=== PATIENT | female | born 1965 | race American Indian/Alaskan Native ===

== ENCOUNTER 2021-06-13 15:54 | Inpatient (IN) | payer SELFPAY ==
[2021-06-13] MEDS ORDERED: ONDANSETRON 4 MG/2 ML INJ IV ONE (16:40)
[2021-06-13] MEDS ORDERED: SODIUM CHLORIDE 0.9% 500 ML 500 ML IV ONE (16:41)
--- NOTE | 2021-06-13 16:41 | Emergency Department Report ---
ED Neuro Deficit HPI - General Chief Complaint: Nausea/Vomiting/Diarrhea Stated Complaint: WEAKNESS/DIZZINESS Time Seen by Provider: 06/13/21 16:33 Source: patient, RN notes reviewed Mode of arrival: Ambulatory Limitations: Physical Limitation - History of Present Illness Initial Comments: The patient was evaluated in the emergency department for symptoms described in the history of present illness. He/she was evaluated in the context of the global COVID-19 pandemic, which necessitated consideration that the patient might be at risk for infection with the virus that causes COVID-19. Institutional protocols and algorithms that pertain to the evaluation of patients at risk for COVID-19 are in a state of rapid change based on information released by regulatory bodies including the CDC and federal and state organizations. These policies and algorithms were followed during the patient's care in the emergency department. Please note that these policies, procedures and recommendations changed on a rapid basis. The patient is a 56-year-old female, with a history of obesity, hypertension and diabetes. She presents to the ER today with a complaint of painless nausea, vomiting, dizziness, and unsteady gait. She thinks that her symptoms started at, around 1:45 PM. She denies headache, neck pain, chest pain, abdominal pain, shortness of breath, loss of auditory acuity or tinnitus. She does feel like she has blurry vision. She denies Covid symptomatology. She has never had symptoms like this before. -: Sudden Location: ataxia Presenting Symptoms: Absent: Weak/Paralyzed One Side, Sudden, Severe Headache, Blurred/Loss of Vision, Facial Droop/Numbness, Unable to Speak Clearly, Altered Mental Status History of same: No Place: outdoors (Patient reports that she was at a store) Severity: severe Improves With: none Worsens With: time On Anticoagulants: No Context: sudden onset Associated Symptoms: nausea/vomiting, vertigo, weakness. denies: shortness of breath - Related Data Allergies/Adverse Reactions: Allergies Allergy/AdvReac Type Severity Reaction Status Date / Time No Known Allergies Allergy Verified 06/13/21 16:11 ED Review of Systems ROS: Stated complaint: WEAKNESS/DIZZINESS Other details as noted in HPI Constitutional: denies: fever Eyes: vision change. denies: eye pain, eye discharge ENT: denies: epistaxis Respiratory: denies: cough Cardiovascular: other (Lightheaded and dizzy). denies: chest pain, orthopnea Gastrointestinal: nausea, vomiting. denies: abdominal pain, hematemesis, melena, hematochezia Musculoskeletal: denies: back pain Neurological: weakness, abnormal gait Hematological/Lymphatic: denies: easy bleeding ED Past Medical Hx - Past Medical History Previous Medical History?: No - Surgical History Past Surgical History?: No ED Neuro Physical Exam - General Limitations: Physical Limitation General appearance: alert, anxious, obese Suspected Stroke: Yes - Head Head exam: Present: atraumatic, normocephalic - Eye Eye exam: Present: normal appearance, PERRL, EOMI, other (Visual acuity intact to finger counting, color perception, reading at a close distance). Absent: nystagmus - ENT ENT exam: Present: normal exam, normal orophraynx, mucous membranes moist, normal external ear exam - Neck Neck exam: Present: normal inspection, full ROM. Absent: tenderness, meningismus - Respiratory Respiratory exam: Present: normal lung sounds bilaterally. Absent: respiratory distress, wheezes, rales, rhonchi, stridor, decreased breath sounds - Cardiovascular Cardiovascular Exam: Present: regular rate, normal rhythm, normal heart sounds. Absent: bradycardia, tachycardia, irregular rhythm, systolic murmur, diastolic murmur, rubs, gallop - GI/Abdominal GI/Abdominal exam: Present: soft. Absent: distended, tenderness, guarding, rebound, rigid, pulsatile mass - Extremities Exam Extremities exam: Present: normal inspection, full ROM, other (2+ pulses noted in the bilateral upper and lower extremities. There is no palpable cord. negative Homans sign. Muscular compartments are soft. The pelvis is stable.). Absent: pedal edema, calf tenderness - Back Exam Back exam: Present: normal inspection, full ROM. Absent: tenderness, CVA tenderness (R), CVA tenderness (L), paraspinal tenderness, vertebral tenderness - Neurological Exam Neurological exam: Present: alert, oriented X3, abnormal gait (Patient walks with a broad-based gait. The patient cannot perform tandem gait. The patient has a positive Romberg examination.), other (There is dysmetria and past- pointing in the bilateral upper extremities. There is pronator drift. Patient has clumsy [id number].). Absent: motor sensory deficit (No facial droop. Tongue midline. Extraocular movements intact bilaterally. Facial sensation intact to light touch in V1, V2, V3 distribution bilaterally. 5 and a 5 strength in 4 extremities. Sensation intact to light touch in 4 extremities.) - NIHSS Assessment Interval: Baseline 1a. Level of Consciousness: alert/keenly responsive 1b. LOC Questions: answers both correctly 1c. LOC Commands: performs tasks correctly 2. Best Gaze: normal 3. Visual: no visual loss 4. Facial Palsy: normal symmetrical movement 5b. Motor Arm Right: no drift 5a. Motor Arm Left: no drift 6a. Motor Leg Left: no drift 6b. Motor Leg Right: no drift 7. Limb Ataxia: present 2 limbs 8. Sensory: normal 9. Best Language: no aphasia 10. Dysarthria: normal 11. Extinction/Inattention: no abnormality Total Score: 2 Stroke Severity: Minor Stroke - Psychiatric Psychiatric exam: Present: anxious - Skin Skin exam: Present: warm, dry, intact, normal color. Absent: rash ED Course Vital Signs 06/13/21 06/13/21 06/13/21 16:11 17:35 17:36 Temperature 98 F Pulse Rate 71 76 66 Pulse Rate [ 61 Left Arm] Respiratory 16 Rate Respiratory 14 Rate [Left Arm] Blood Pressure 153/72 153/72 Blood Pressure 142/77 [Left Arm] Blood Pressure 154/63 [Left] O2 Sat by Pulse 96 Oximetry O2 Sat by Pulse 99 Oximetry [Left Arm] 06/13/21 06/13/21 06/13/21 17:49 18:04 18:19 Temperature Pulse Rate Pulse Rate [ 66 64 62 Left Arm] Respiratory Rate Respiratory 14 14 15 Rate [Left Arm] Blood Pressure Blood Pressure 133/70 142/74 142/74 [Left Arm] Blood Pressure [Left] O2 Sat by Pulse Oximetry O2 Sat by Pulse 99 99 99 Oximetry [Left Arm] 06/13/21 18:34 Temperature Pulse Rate Pulse Rate [ 66 Left Arm] Respiratory Rate Respiratory 15 Rate [Left Arm] Blood Pressure Blood Pressure 97/63 [Left Arm] Blood Pressure [Left] O2 Sat by Pulse Oximetry O2 Sat by Pulse 99 Oximetry [Left Arm] - Reevaluation(s) Reevaluation #1: 06/13/21 19:59 Patient reassessed. Repeat examination unchanged. Will not ambulate the patient due to her unsteady gait, and given the fact that she is a fall risk. She denies significant pain at this time. Blood pressure acceptable. Awaiting placement in the intensive care unit. - Lab Data Result diagrams: 06/13/21 17:30 06/13/21 17:30 Lab Results 06/13/21 06/13/21 06/13/21 Range/Units 17:30 17:30 17:30 WBC 11.2 H (4.5-11.0) K/mm3 RBC 4.15 (3.65-5.03) M/mm3 Hgb 11.6 (10.1-14.3) gm/dl Hct 35.2 (30.3-42.9) % MCV 85 (79-97) fl MCH 28 (28-32) pg MCHC 33 (30-34) % RDW 15.3 H (13.2-15.2) % Plt Count 366 (140-440) K/mm3 Lymph % (Auto) 31.3 (13.4-35.0) % [place] % (Auto) 4.0 (0.0-7.3) % Eos % (Auto) 0.5 (0.0-4.3) % Baso % (Auto) 1.3 (0.0-1.8) % Lymph # (Auto) 3.5 (1.2-5.4) K/mm3 [place] # (Auto) 0.4 (0.0-0.8) K/mm3 Eos # (Auto) 0.1 (0.0-0.4) K/mm3 Baso # (Auto) 0.1 (0.0-0.1) K/mm3 Seg Neutrophils % 62.9 (40.0-70.0) % Seg Neutrophils # 7.0 (1.8-7.7) K/mm3 PT 13.2 (12.2-14.9) Sec. INR 0.95 (0.87-1.13) APTT 22.7 L (24.2-36.6) Sec. Thrombin Time 18.1 (15.1-19.6) Sec. Sodium 137 (137-145) mmol/L Potassium 4.2 (3.6-5.0) mmol/L Chloride 100.0 (98-107) mmol/L Carbon Dioxide 23 (22-30) mmol/L Anion Gap 18 mmol/L BUN 16 (7-17) mg/dL Creatinine 0.8 (0.6-1.2) mg/dL Estimated GFR > 60 ml/min BUN/Creatinine Ratio 20 % Glucose 109 H (65-100) mg/dL Calcium 9.0 (8.4-10.2) mg/dL Magnesium 1.90 (1.7-2.3) mg/dL Total Bilirubin 0.40 (0.1-1.2) mg/dL AST 20 (5-40) units/L ALT 16 (7-56) units/L Alkaline Phosphatase 108 (35-129) units/L Total Creatine Kinase 384 H (30-135) units/L CK-MB (CK-2) 1.4 (0.0-4.0) ng/mL CK-MB (CK-2) Rel Index 0.3 (0-4) Troponin T < 0.010 (0.00-0.029) ng/mL Total Protein 8.1 (6.3-8.2) g/dL Albumin 4.4 (3.9-5) g/dL Albumin/Globulin Ratio 1.2 % TSH (0.270-4.200) mlU/mL Plasma/Serum Alcohol (0-0.07) % 06/13/21 06/13/21 Range/Units 17:30 17:30 WBC (4.5-11.0) K/mm3 RBC (3.65-5.03) M/mm3 Hgb (10.1-14.3) gm/dl Hct (30.3-42.9) % MCV (79-97) fl MCH (28-32) pg MCHC (30-34) % RDW (13.2-15.2) % Plt Count (140-440) K/mm3 Lymph % (Auto) (13.4-35.0) % [place] % (Auto) (0.0-7.3) % Eos % (Auto) (0.0-4.3) % Baso % (Auto) (0.0-1.8) % Lymph # (Auto) (1.2-5.4) K/mm3 [place] # (Auto) (0.0-0.8) K/mm3 Eos # (Auto) (0.0-0.4) K/mm3 Baso # (Auto) (0.0-0.1) K/mm3 Seg Neutrophils % (40.0-70.0) % Seg Neutrophils # (1.8-7.7) K/mm3 PT (12.2-14.9) Sec. INR (0.87-1.13) APTT (24.2-36.6) Sec. Thrombin Time (15.1-19.6) Sec. Sodium (137-145) mmol/L Potassium (3.6-5.0) mmol/L Chloride (98-107) mmol/L Carbon Dioxide (22-30) mmol/L Anion Gap mmol/L BUN (7-17) mg/dL Creatinine (0.6-1.2) mg/dL Estimated GFR ml/min BUN/Creatinine Ratio % Glucose (65-100) mg/dL Calcium (8.4-10.2) mg/dL Magnesium (1.7-2.3) mg/dL Total Bilirubin (0.1-1.2) mg/dL AST (5-40) units/L ALT (7-56) units/L Alkaline Phosphatase (35-129) units/L Total Creatine Kinase (30-135) units/L CK-MB (CK-2) (0.0-4.0) ng/mL CK-MB (CK-2) Rel Index (0-4) Troponin T (0.00-0.029) ng/mL Total Protein (6.3-8.2) g/dL Albumin (3.9-5) g/dL Albumin/Globulin Ratio % TSH 1.430 (0.270-4.200) mlU/mL Plasma/Serum Alcohol < 0.01 (0-0.07) % Vital Signs 06/13/21 16:11 Temperature 98 F Pulse Rate 71 Respiratory 16 Rate Blood Pressure 154/63 [Left] O2 Sat by Pulse 96 Oximetry Vital Signs 06/13/21 06/13/21 06/13/21 16:11 17:35 17:36 Temperature 98 F Pulse Rate 71 76 66 Pulse Rate [ 61 Left Arm] Respiratory 16 Rate Respiratory 14 Rate [Left Arm] Blood Pressure 153/72 153/72 Blood Pressure 142/77 [Left Arm] Blood Pressure 154/63 [Left] O2 Sat by Pulse 96 Oximetry O2 Sat by Pulse 99 Oximetry [Left Arm] 06/13/21 06/13/21 17:49 18:04 Temperature Pulse Rate Pulse Rate [ 66 64 Left Arm] Respiratory Rate Respiratory 14 14 Rate [Left Arm] Blood Pressure Blood Pressure 133/70 142/74 [Left Arm] Blood Pressure [Left] O2 Sat by Pulse Oximetry O2 Sat by Pulse 99 99 Oximetry [Left Arm] Lab Results 06/13/21 06/13/21 06/13/21 Range/Units 17:30 17:30 17:30 WBC 11.2 H (4.5-11.0) K/mm3 RBC 4.15 (3.65-5.03) M/mm3 Hgb 11.6 (10.1-14.3) gm/dl Hct 35.2 (30.3-42.9) % MCV 85 (79-97) fl MCH 28 (28-32) pg MCHC 33 (30-34) % RDW 15.3 H (13.2-15.2) % Plt Count 366 (140-440) K/mm3 Lymph % (Auto) 31.3 (13.4-35.0) % [place] % (Auto) 4.0 (0.0-7.3) % Eos % (Auto) 0.5 (0.0-4.3) % Baso % (Auto) 1.3 (0.0-1.8) % Lymph # (Auto) 3.5 (1.2-5.4) K/mm3 [place] # (Auto) 0.4 (0.0-0.8) K/mm3 Eos # (Auto) 0.1 (0.0-0.4) K/mm3 Baso # (Auto) 0.1 (0.0-0.1) K/mm3 Seg Neutrophils % 62.9 (40.0-70.0) % Seg Neutrophils # 7.0 (1.8-7.7) K/mm3 PT 13.2 (12.2-14.9) Sec. INR 0.95 (0.87-1.13) APTT 22.7 L (24.2-36.6) Sec. Thrombin Time 18.1 (15.1-19.6) Sec. Sodium 137 (137-145) mmol/L Potassium 4.2 (3.6-5.0) mmol/L Chloride 100.0 (98-107) mmol/L Carbon Dioxide 23 (22-30) mmol/L Anion Gap 18 mmol/L BUN 16 (7-17) mg/dL Creatinine 0.8 (0.6-1.2) mg/dL Estimated GFR > 60 ml/min BUN/Creatinine Ratio 20 % Glucose 109 H (65-100) mg/dL Calcium 9.0 (8.4-10.2) mg/dL Magnesium 1.90 (1.7-2.3) mg/dL Total Bilirubin 0.40 (0.1-1.2) mg/dL AST 20 (5-40) units/L ALT 16 (7-56) units/L Alkaline Phosphatase 108 (35-129) units/L Total Creatine Kinase 384 H (30-135) units/L CK-MB (CK-2) 1.4 (0.0-4.0) ng/mL CK-MB (CK-2) Rel Index 0.3 (0-4) Troponin T < 0.010 (0.00-0.029) ng/mL Total Protein 8.1 (6.3-8.2) g/dL Albumin 4.4 (3.9-5) g/dL Albumin/Globulin Ratio 1.2 % TSH (0.270-4.200) mlU/mL Plasma/Serum Alcohol (0-0.07) % 06/13/21 06/13/21 Range/Units 17:30 17:30 WBC (4.5-11.0) K/mm3 RBC (3.65-5.03) M/mm3 Hgb (10.1-14.3) gm/dl Hct (30.3-42.9) % MCV (79-97) fl MCH (28-32) pg MCHC (30-34) % RDW (13.2-15.2) % Plt Count (140-440) K/mm3 Lymph % (Auto) (13.4-35.0) % [place] % (Auto) (0.0-7.3) % Eos % (Auto) (0.0-4.3) % Baso % (Auto) (0.0-1.8) % Lymph # (Auto) (1.2-5.4) K/mm3 [place] # (Auto) (0.0-0.8) K/mm3 Eos # (Auto) (0.0-0.4) K/mm3 Baso # (Auto) (0.0-0.1) K/mm3 Seg Neutrophils % (40.0-70.0) % Seg Neutrophils # (1.8-7.7) K/mm3 PT (12.2-14.9) Sec. INR (0.87-1.13) APTT (24.2-36.6) Sec. Thrombin Time (15.1-19.6) Sec. Sodium (137-145) mmol/L Potassium (3.6-5.0) mmol/L Chloride (98-107) mmol/L Carbon Dioxide (22-30) mmol/L Anion Gap mmol/L BUN (7-17) mg/dL Creatinine (0.6-1.2) mg/dL Estimated GFR ml/min BUN/Creatinine Ratio % Glucose (65-100) mg/dL Calcium (8.4-10.2) mg/dL Magnesium (1.7-2.3) mg/dL Total Bilirubin (0.1-1.2) mg/dL AST (5-40) units/L ALT (7-56) units/L Alkaline Phosphatase (35-129) units/L Total Creatine Kinase (30-135) units/L CK-MB (CK-2) (0.0-4.0) ng/mL CK-MB (CK-2) Rel Index (0-4) Troponin T (0.00-0.029) ng/mL Total Protein (6.3-8.2) g/dL Albumin (3.9-5) g/dL Albumin/Globulin Ratio % TSH 1.430 (0.270-4.200) mlU/mL Plasma/Serum Alcohol < 0.01 (0-0.07) % - EKG Data -: EKG Interpreted by [place] EKG shows normal: sinus rhythm Rate: normal When compared to previous EKG there are: previous EKG unavailable 06/13/21 18:11 The EKG is interpreted at 18: 05 Sinus rhythm, 62 bpm. Left axis deviation, normal P wave axis, incomplete right bundle branch block, QTC 463 ms. This is an abnormal EKG. This is not a STEMI. There is no prior for comparison. - Radiology Data Radiology results: pending, report reviewed, image reviewed applicable. CONTRAST: 100 ml of Omnipaque 350 FINDINGS: CT HEAD: BRAIN / INTRACRANIAL CONTENTS: No acute hemorrhage, mass effect, midline shift, or hydrocephalus. No appreciable acute large territorial or lacunar infarct. ORBITS: No significant abnormality of visualized orbits. SINUSES / MASTOIDS: No significant abnormality of visualized sinuses and mastoid air cells. CTA HEAD: Intracranial vertebral arteries: No significant abnormality. Basilar artery: No significant abnormality. Posterior cerebral arteries: No significant abnormality. Intracranial internal carotid arteries: No significant abnormality. Anterior cerebral arteries: No significant abnormality. Middle cerebral arteries: No significant abnormality. Dural venous sinuses:Not optimally opacified. No significant abnormality. CTA NECK: Aortic arch: No significant abnormality. Cervical vertebral arteries: No significant abnormality. Common carotid arteries: No significant abnormality. Cervical internal carotid arteries: Minimal plaque in both carotid bulbs without significant stenosis. Additional findings: None. IMPRESSION: 1. No significant stenosis or large vessel occlusion in the neck or intracranial arteries. Findings discussed with Dr. Cifuentes at 4:30 PM central time. CTA HEAD AND NECK WITH CONTRAST HISTORY: COMPARISON: None. TECHNIQUE: All CT scans at this location are performed using CT dose reduction for ALARA by means of automated exposure control.. 3-D/MIP reformats postprocessed. Percentage stenosis is determined by direct quantitative measurements of diseased internal carotid artery diameter compared with normal distal internal carotid artery reference segments or by criteria similar to NASCET where applicable. CONTRAST: 100 ml of Omnipaque 350 FINDINGS: CT HEAD: BRAIN / INTRACRANIAL CONTENTS: No acute hemorrhage, mass effect, midline shift, or hydrocephalus. No appreciable acute large territorial or lacunar infarct. ORBITS: No significant abnormality of visualized orbits. SINUSES / MASTOIDS: No significant abnormality of visualized sinuses and mastoid air cells. CTA HEAD: Intracranial vertebral arteries: No significant abnormality. Basilar artery: No significant abnormality. Posterior cerebral arteries: No significant abnormality. Intracranial internal carotid arteries: No significant abnormality. Anterior cerebral arteries: No significant abnormality. Middle cerebral arteries: No significant abnormality. Dural venous sinuses:Not optimally opacified. No significant abnormality. CTA NECK: Aortic arch: No significant abnormality. Cervical vertebral arteries: No significant abnormality. Common carotid arteries: No significant abnormality. Cervical internal carotid arteries: Minimal plaque in both carotid bulbs without significant stenosis. Additional findings: None. IMPRESSION: 1. No significant stenosis or large vessel occlusion in the neck or intracranial arteries. Findings discussed with Dr. Cifuentes at 4:30 PM central time. Signer Name: Preston Dewitt MD Signed: 06/13/2021 4:30 PM Workstation Name: [id number] CTA HEAD AND NECK WITH CONTRAST HISTORY: COMPARISON: None. TECHNIQUE: All CT scans at this location are performed using CT dose reduction for ALARA by means of automated exposure control.. 3-D/MIP reformats postprocessed. Percentage stenosis is determined by direct quantitative measurements of diseased internal carotid artery diameter compared with normal distal internal carotid artery reference segments or by criteria similar to NASCET where applicable. CONTRAST: 100 ml of Omnipaque 350 FINDINGS: CT HEAD: BRAIN / INTRACRANIAL CONTENTS: No acute hemorrhage, mass effect, midline shift, or hydrocephalus. No appreciable acute large territorial or lacunar infarct. ORBITS: No significant abnormality of visualized orbits. SINUSES / MASTOIDS: No significant abnormality of visualized sinuses and mastoid air cells. CTA HEAD: Intracranial vertebral arteries: No significant abnormality. Basilar artery: No significant abnormality. Posterior cerebral arteries: No significant abnormality. Intracranial internal carotid arteries: No significant abnormality. Anterior cerebral arteries: No significant abnormality. Middle cerebral arteries: No significant abnormality. Dural venous sinuses:Not optimally opacified. No significant abnormality. CTA NECK: Aortic arch: No significant abnormality. Cervical vertebral arteries: No significant abnormality. Common carotid arteries: No significant abnormality. Cervical internal carotid arteries: Minimal plaque in both carotid bulbs without significant stenosis. Additional findings: None. IMPRESSION: 1. No significant stenosis or large vessel occlusion in the neck or intracranial arteries. Findings discussed with Dr. Cifuentes at 4:30 PM central time. Signer Name: Preston Dewitt MD Signed: 06/13/2021 4:30 PM Workstation Name: [id number] - Medical Decision Making Differential diagnosis, including but not limited to: Stroke, peripheral vertigo, electrolyte derangement, central vertigo Assessment and plan: 56-year-old female, with a GCS of 15, NIH score of 2, with no contraindications to TPA (had exhaustive discussion with patient regarding risk, benefits alternatives to TPA, also discussed indications and contraindications, with myself, nursing team, and consulting neurology, patient denied any contraindications to TPA) who presents to the ER today with a complaint of painless nausea, ataxia, unsteady gait, with multiple physical exam findings. Patient meets criteria for TPA. Patient provided verbal informed consent for TPA. Nurse Nichole Lipscomb is present as a witness, as is the consulting neurologist, (please reference Dr. Russell Jacobo's note.) CT scan of the brain, CT angiogram head and neck demonstrated no large vessel occlusion, dissection, hemorrhage, or any finding that would require transfer or endovascular intervention. Contacted our critical care physician on-call, Dr. Garibay. Discussed the patient's history, physical, laboratory studies imaging studies and overall plan of care. He will follow in consultation, the patient is excepted to the critical care unit for post TPA care. Hospital physician, Dr. Leeann Ospina, has accepted this patient to the medical service. Extensive discussion had with patient. She has articulated understanding. All questions answered. - Core Measures Measure Exclusions: not indicated - Thrombolytic Inclusion/Exclusion Thrombolytic Inclusion Criteria: Ischemic Stroke Onset< 3h, NIH Stroke Scale Deficit, Negative CT Scan for ICH, Age 18 or Older, Glucose of 50-400mg/dl Critical Care Time: Yes Critical care time in (mins) excluding proc time.: 45 Critical care attestation.: If time is entered above; I have spent that time in minutes in the direct care of this critically ill patient, excluding procedure time. Critical Care Time: Critical care time includes multiple bedside reevaluations, interpretation of laboratory studies, radiology studies, time spent performing multiple physical examinations, multiple discussions with critical care, neurology, hospital medicine, and patient, and time spent at the patient's bedside, administering TPA bolus, poor patient who presents within 4.5 hours of last known well time with strokelike symptoms, who meets criteria for TPA. This does not include procedure time. ED Disposition Clinical Impression: Unsteady gait, History of nausea and vomiting Disposition: ADMITTED INPATIENT Is pt being admited?: Yes Does the pt Need Aspirin: No Condition: Critical
--- NOTE | 2021-06-13 17:14 | Cat Scan Report ---
CT head/brain wo con INDICATION: Stroke-Like symptoms. TECHNIQUE: All CT scans at this location are performed using CT dose reduction for ALARA by means of automated e xposure control. COMPARISON: None available. FINDINGS: There is no evidence of hemorrhage, hydrocephalus, large brain edema, or mass effect/mass lesion. Bra in volume appears normal for age. The included paranasal sinuses and mastoid air cells are clear. The orbits appear unremarkable. IMPRESSION: 1. No acute findings. Follow-up CTA head and neck is dictated in a separate report. Signer Name: Preston Dewitt MD Signed: 06/13/2021 5:09 PM Workstation Name: [id number]
[2021-06-13] MEDS ORDERED: ALTEPLASE 100 MG INJ KIT ONE (17:26)
[2021-06-13] MEDS ORDERED: SODIUM CHLORIDE 0.9% 50 ML IVPB IV ONE ×2 (17:26→17:46)
[2021-06-13] MEDS ORDERED: ALTEPLASE 100 MG INJ KIT IV ONE ×4 (17:26→17:46)
--- NOTE | 2021-06-13 17:34 | Cat Scan Report ---
CTA HEAD AND NECK WITH CONTRAST HISTORY: COMPARISON: None. TECHNIQUE: All CT scans at this location are performed using CT dose reduction for ALARA by means of automated exposure control.. 3-D/MIP reformats postprocessed. Percentage stenosis is determined by d irect quantitative measurements of diseased internal carotid artery diameter compared with normal dis hermelindo internal carotid artery reference segments or by criteria similar to NASCET where applicable. CONTRAST: 100 ml of Omnipaque 350 FINDINGS: CT HEAD: BRAIN / INTRACRANIAL CONTENTS: No acute hemorrhage, mass effect, midline shift, or hydrocephalus. No appreciable acute large territorial or lacunar infarct. ORBITS: No significant abnormality of visualized orbits. SINUSES / MASTOIDS: No significant abnormality of visualized sinuses and mastoid air cells. CTA HEAD: Intracranial vertebral arteries: No significant abnormality. Basilar artery: No significant abnormality. Posterior cerebral arteries: No significant abnormality. Intracranial internal carotid arteries: No significant abnormality. Anterior cerebral arteries: No significant abnormality. Middle cerebral arteries: No significant abnormality. Dural venous sinuses:Not optimally opacified. No significant abnormality. CTA NECK: Aortic arch: No significant abnormality. Cervical vertebral arteries: No significant abnormality. Common carotid arteries: No significant abnormality. Cervical internal carotid arteries: Minimal plaque in both carotid bulbs without significant stenosis . Additional findings: None. IMPRESSION: 1. No significant stenosis or large vessel occlusion in the neck or intracranial arteries. Findings discussed with Dr. Cifuentes at 4:30 PM central time. Signer Name: Preston Dewitt MD Signed: 06/13/2021 5:30 PM Workstation Name: [id number]
[2021-06-13 17:45] LABS: Basophils # (Auto) 0.1 K/mm3 (0.0-0.1); Basophils % (Auto) 1.3 % (0.0-1.8); Eosinophils # (Auto) 0.1 K/mm3 (0.0-0.4); Eosinophils % (Auto) 0.5 % (0.0-4.3); Hematocrit 35.2 % (30.3-42.9); Hemoglobin 11.6 gm/dl (10.1-14.3); Lymphocytes # (Auto) 3.5 K/mm3 (1.2-5.4); Lymphocytes % (Auto) 31.3 % (13.4-35.0); Mean Corpuscular HGB Conc 33 % (30-34); Mean Corpuscular Volume 85 fl (79-97); Monocytes # (Auto) 0.4 K/mm3 (0.0-0.8); Platelet Count 366 K/mm3 (140-440); Red Blood Count 4.15 M/mm3 (3.65-5.03); Red Cell Distribution Width 15.3 % (13.2-15.2)
--- NOTE | 2021-06-13 17:48 | Emergency Department Report ---
Blank Doc - Documentation Documentation: [facility] Consult Note # Demographics Consult Type: Acute Stroke Level 1 (0-4.5 hrs) Patient Location: Emergency Room First Name: Estelle Last Name: Lee Date of : 1965 Age: 56 Gender: Female Facility: [facility] Time of Initial Page (): 06/13/2021, 16:48 Time of Return Call ( Time): 06/13/2021, 16:49 # HPI History: 56 yo woman with HTN, diabetes, BG 105 at time of arrival, presented with could not walk, noted to have nausea/vomiting, patient notes that she has been very exhausted, feeling like she is very sleepy. She describes the sensation as light headedness. # Scores Time of exam and NIHSS (): 06/13/2021, 17:14 Level of Consciousness 1a: [0] = Alert; keenly responsive LOC Questions 1b: [0] = Answers both questions correctly LOC Commands 1c: [0] = Performs both tasks correctly Best Gaze 2: [0] = Normal Visual 3: [0] = No visual loss Facial Palsy 4: [0] = Normal symmetrical movements Motor Arm Left 5a: [0] = No drift Motor Arm Right 5b: [0] = No drift Motor Leg Left 6a: [0] = No drift Motor Leg Right 6b: [0] = No drift Limb Ataxia 7: [2] = Present in two limbs Sensory 8: [0] = Normal Best Language 9: [0] = No aphasia Dysarthria 10: [0] = Normal Extinction and Inattention 11: [0] = No abnormality NIHSS Total: 2 # Assessment Impression: nausea/vomiting, dizziness. truncal ataxia. tpa candidate # Plan Thrombolytic/Intervention: IV Thrombolysis Time IV Thrombolytic Recommended (): 06/13/2021, 17:23 Target Blood Pressure: SBP < 220 DBP < 105 Labs: CBC comprehensive metabolic panel lipid panel TSH ua Imaging: (urgency: routine): MRI Brain without contrast Thrombolytic Administration Recommendations: I reviewed the risks/benefits/alternatives of IV thrombolytic therapy with the patient. They understand there is potential of life threatening hemorrhage from IV thrombolysis. I stated that I believe benefits outweighs risk. They wish to proceed with IV thrombolytic therapy. BP goal< 180/105 for 24hrs post Thrombolytic administration Use Labetolol 10-20mg IV prn or Nicardipine gtt to maintain BP parameters No antiplatelets or anticoagulants for next 24 hrs unless indicated for emergent IA procedure or other life threatening situation ICU admission Call back if there is any decline in neurological condition Other: If patient has any neurological deterioration please call me back immediately I have discussed my recommendations with the referring provider Disposition: admit # Logistics Telemedicine: Interactive 2 way audio and visual telecommunication technology was utilized during this visit
[2021-06-13 18:02] LABS: Alanine Aminotransferase 16 units/L (7-56); Albumin 4.4 g/dL (3.9-5); BUN/Creatinine Ratio 20; Blood Urea Nitrogen 16 mg/dL (7-17); Creatine Kinase MB 1.4 ng/mL (0.0-4.0); Hemolysis Index 2
[2021-06-13 18:04] LABS: INR 0.95 (0.87-1.13); Partial Thromboplastin Time 22.7 Sec. (24.2-36.6)
[2021-06-13 18:05] LABS: Thrombin Time 18.1 Sec. (15.1-19.6)
[2021-06-13] MEDS ORDERED: METOCLOPRAMIDE 10 MG/2 ML INJ IV PRN (21:48)
[2021-06-13] MEDS ORDERED: HYDROmorphone 1 MG/1 ML INJ IV PRN (21:48)
[2021-06-13] MEDS ORDERED: ACETAMINOPHEN 325 MG TAB PO PRN (21:48)
[2021-06-13] MEDS ORDERED: ONDANSETRON 4 MG/2 ML INJ IV PRN (21:48)
[2021-06-13] MEDS ORDERED: oxyCODONE /ACETAMINOPHEN 5-325MG TAB PO PRN (21:48)
--- NOTE | 2021-06-13 21:48 | History and Physical Report ---
History of Present Illness Date of examination: 06/13/21 Date of admission: 06/13/21 18:17 Chief complaint: Severe dizziness and difficulty walking since 11 AM History of present illness: 56-year-old with history of hypertension diabetes and obesity presents to the ER with nausea vomiting and severe dizziness and unsteady gait. 15th of symptoms started around 1:45 PM. Patient unable to walk because of the unsteadiness possible ataxia. No nasal regurgitation of fluids. No diplopia. No focal weakness. Her main problem is severe dizziness and difficulty walking. ED course Code stroke was called and patient was given TPA with the diagnosis of posterior cerebral vascular accident. Review of Systems ROS: Stated complaint: WEAKNESS/DIZZINESS Other details as noted in HPI Constitutional: denies: fever Eyes: vision change. denies: eye pain, eye discharge ENT: denies: epistaxis Respiratory: denies: cough Cardiovascular: other (Lightheaded and dizzy). denies: chest pain, orthopnea Gastrointestinal: nausea, vomiting. denies: abdominal pain, hematemesis, melena, hematochezia Musculoskeletal: denies: back pain Neurological: weakness, abnormal gait Hematological/Lymphatic: denies: easy bleeding Past History Past Medical History: hypertension, hyperlipidemia Past Surgical History: No surgical history Social history: lives with family, full code Family history: hypertension Medications and Allergies Allergies Allergy/AdvReac Type Severity Reaction Status Date / Time No Known Allergies Allergy Verified 06/13/21 16:11 Exam - Constitutional Vitals: Temp Pulse Resp BP Pulse Ox 98 F 66 15 97/63 99 06/13/21 16:11 06/13/21 18:34 06/13/21 18:34 06/13/21 18:34 06/13/21 18:34 General appearance: Present: no acute distress, well-nourished - EENT Eyes: Present: PERRL ENT: hearing intact, clear oral mucosa - Neck Neck: Present: supple, normal ROM - Respiratory Respiratory effort: normal Respiratory: bilateral: CTA - Cardiovascular Heart rate: 78 Rhythm: regular Heart Sounds: Present: S1 & S2. Absent: rub, click - Extremities Extremities: pulses symmetrical, No edema Peripheral Pulses: within normal limits - Abdominal General gastrointestinal: Present: soft, non-tender, non-distended, normal bowel sounds Female genitourinary: Present: normal - Integumentary Integumentary: Present: clear, warm, dry - Musculoskeletal Musculoskeletal: strength equal bilaterally, other (Patient is ataxic) - Psychiatric Psychiatric: appropriate mood/affect, intact judgment & insight - Neurologic Neurologic: CNII-XII intact, moves all extremities, other (Patient is ataxic) HEART Score - HEART Score History: Slightly suspicious Age: 45-65 Risk factors: 1-2 risk factors Troponin: Troponin T < 0.010 ng/mL (0.00-0.029) 06/13/21 17:30 Troponin: < normal limit - Critical Actions Critical Actions: 0-3 pts:0.9-1.7%risk of adverse cardiac event.Candidate for discharge Results - Labs CBC & Chem 7: 06/13/21 17:30 06/13/21 17:30 Labs: Laboratory Last Values WBC 11.2 K/mm3 (4.5-11.0) H 06/13/21 17:30 RBC 4.15 M/mm3 (3.65-5.03) 06/13/21 17:30 Hgb 11.6 gm/dl (10.1-14.3) 06/13/21 17:30 Hct 35.2 % (30.3-42.9) 06/13/21 17:30 MCV 85 fl (79-97) 06/13/21 17:30 MCH 28 pg (28-32) 06/13/21 17:30 MCHC 33 % (30-34) 06/13/21 17:30 RDW 15.3 % (13.2-15.2) H 06/13/21 17:30 Plt Count 366 K/mm3 (140-440) 06/13/21 17:30 Lymph % (Auto) 31.3 % (13.4-35.0) 06/13/21 17:30 [place] % (Auto) 4.0 % (0.0-7.3) 06/13/21 17:30 Eos % (Auto) 0.5 % (0.0-4.3) 06/13/21 17:30 Baso % (Auto) 1.3 % (0.0-1.8) 06/13/21 17:30 Lymph # (Auto) 3.5 K/mm3 (1.2-5.4) 06/13/21 17:30 [place] # (Auto) 0.4 K/mm3 (0.0-0.8) 06/13/21 17:30 Eos # (Auto) 0.1 K/mm3 (0.0-0.4) 06/13/21 17:30 Baso # (Auto) 0.1 K/mm3 (0.0-0.1) 06/13/21 17:30 Seg Neutrophils % 62.9 % (40.0-70.0) 06/13/21 17:30 Seg Neutrophils # 7.0 K/mm3 (1.8-7.7) 06/13/21 17:30 PT 13.2 Sec. (12.2-14.9) 06/13/21 17:30 INR 0.95 (0.87-1.13) 06/13/21 17:30 APTT 22.7 Sec. (24.2-36.6) L 06/13/21 17:30 Thrombin Time 18.1 Sec. (15.1-19.6) 06/13/21 17:30 Sodium 137 mmol/L (137-145) 06/13/21 17:30 Potassium 4.2 mmol/L (3.6-5.0) 06/13/21 17:30 Chloride 100.0 mmol/L (98-107) 06/13/21 17:30 Carbon Dioxide 23 mmol/L (22-30) 06/13/21 17:30 Anion Gap 18 mmol/L 06/13/21 17:30 BUN 16 mg/dL (7-17) 06/13/21 17:30 Creatinine 0.8 mg/dL (0.6-1.2) 06/13/21 17:30 Estimated GFR > 60 ml/min 06/13/21 17:30 BUN/Creatinine Ratio 20 % 06/13/21 17:30 Glucose 109 mg/dL (65-100) H 06/13/21 17:30 Calcium 9.0 mg/dL (8.4-10.2) 06/13/21 17:30 Magnesium 1.90 mg/dL (1.7-2.3) 06/13/21 17:30 Total Bilirubin 0.40 mg/dL (0.1-1.2) 06/13/21 17:30 AST 20 units/L (5-40) 06/13/21 17:30 ALT 16 units/L (7-56) 06/13/21 17:30 Alkaline Phosphatase 108 units/L (35-129) 06/13/21 17:30 Total Creatine Kinase 384 units/L (30-135) H 06/13/21 17:30 CK-MB (CK-2) 1.4 ng/mL (0.0-4.0) 06/13/21 17:30 CK-MB (CK-2) Rel Index 0.3 (0-4) 06/13/21 17:30 Troponin T < 0.010 ng/mL (0.00-0.029) 06/13/21 17:30 Total Protein 8.1 g/dL (6.3-8.2) 06/13/21 17:30 Albumin 4.4 g/dL (3.9-5) 06/13/21 17:30 Albumin/Globulin Ratio 1.2 % 06/13/21 17:30 TSH 1.430 mlU/mL (0.270-4.200) 06/13/21 17:30 Plasma/Serum Alcohol < 0.01 % (0-0.07) 06/13/21 17:30 Short CBC 06/13/21 Range/Units 17:30 WBC 11.2 H (4.5-11.0) K/mm3 Hgb 11.6 (10.1-14.3) gm/dl Hct 35.2 (30.3-42.9) % Plt Count 366 (140-440) K/mm3 BMP 06/13/21 17:30 Sodium 137 Potassium 4.2 Chloride 100.0 Carbon Dioxide 23 BUN 16 Creatinine 0.8 Glucose 109 H Calcium 9.0 Cardiac Enzymes 06/13/21 Range/Units 17:30 Total Creatine Kinase 384 H (30-135) units/L CK-MB (CK-2) 1.4 (0.0-4.0) ng/mL Troponin T < 0.010 (0.00-0.029) ng/mL Liver Function 06/13/21 Range/Units 17:30 Total Bilirubin 0.40 (0.1-1.2) mg/dL AST 20 (5-40) units/L ALT 16 (7-56) units/L Alkaline Phosphatase 108 (35-129) units/L Albumin 4.4 (3.9-5) g/dL - Imaging and Cardiology EKG: report reviewed CT Scan - head: report reviewed Imaging and Cardiology: Head CT No acute findings Head CTA No significant stenosis or large vessel occlusion in the neck or intracranial arteries Neck CTA No significant stenosis or large vessel occlusion in the neck or intracranial arteries Findings discussed with Dr. Elizalde Assessment and Plan Advance Directives: Yes (Full code) VTE prophylaxis?: Chemical Plan of care discussed with patient/family: Yes - Patient Problems (1) Acute CVA (cerebrovascular accident) Current Visit: Yes Status: Acute Plan to address problem: Patient has severe ataxia Possible posterior cerebral artery circulation stroke CTAs are negative We will get MRI for further delineation Neurology consult requested (2) HTN (hypertension) Current Visit: Yes Status: Chronic Qualifiers: Hypertension type: primary hypertension Qualified Code(s): I10 - Essential (primary) hypertension Plan to address problem: Continue antihypertensives and adjust medications (3) T2DM (type 2 diabetes mellitus) Current Visit: Yes Status: Chronic Qualifiers: 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
[2021-06-14] MEDS: FAMOTIDINE 20 MG/2 ML INJ IV SCH ×3 (02:17→23:01)
[2021-06-14] MEDS: SODIUM CHLORIDE 0.9% 1000 ML 1,000 ML IV SCH (04:20)
--- NOTE | 2021-06-14 07:57 | Consultation ---
History of Present Illness Consult date: 06/14/21 Reason for Consult: Dizziness and unsteady gait ,Post TPA in ER History of present illness: 56-year-old with history of hypertension diabetes and obesity presents to the ER with nausea vomiting and severe dizziness and unsteady gait. symptoms started around 1:45 PM. Patient unable to walk because of the unsteadiness possible ataxia. No nasal regurgitation of fluids. No diplopia. No focal weakness. Her main problem is severe dizziness and difficulty walking. ED course Code stroke was called and patient was given TPA with the diagnosis of posterior cerebral vascular accident. Ct brain ,CTA brain and neck are unremarkable Initial NIH#2 she takes ASA daily Hx of Rh. arthritis on Ivis X5 months Hx of DM currently is doing well Review of Systems ROS: Stated complaint: WEAKNESS/DIZZINESS Other details as noted in HPI Constitutional: denies: fever Eyes: vision change. denies: eye pain, eye discharge ENT: denies: epistaxis Respiratory: denies: cough Cardiovascular: other (Lightheaded and dizzy). denies: chest pain, orthopnea Gastrointestinal: nausea, vomiting. denies: abdominal pain, hematemesis, melena, hematochezia Musculoskeletal: denies: back pain Neurological: weakness, abnormal gait Hematological/Lymphatic: denies: easy bleeding Past History Past Medical History: hypertension, hyperlipidemia, Rh. arthritis Past Surgical History: No surgical history Social history: lives with family, full code Family history: hypertension Medications and Allergies Allergies Allergy/AdvReac Type Severity Reaction Status Date / Time No Known Allergies Allergy Verified 06/13/21 16:11 Past History Past Medical History: hypertension, hyperlipidemia Past Surgical History: No surgical history Social history: lives with family, full code Family history: hypertension Medications and Allergies Allergies Allergy/AdvReac Type Severity Reaction Status Date / Time No Known Allergies Allergy Verified 06/13/21 16:11 Active Meds: Active Medications Acetaminophen (Acetaminophen 325 Mg Tab) 650 mg PO Q4H PRN PRN Reason: Pain MILD(1-3)/Fever >100.5/THOM[place]ON Aspirin (Aspirin 325 Mg Tab) 325 mg PO QDAY [facility] Atorvastatin Calcium (Atorvastatin 40 Mg Tab) 40 mg PO QHS [facility] Last Admin: 06/14/21 02:16 Dose: 40 mg Documented by: Famotidine (Famotidine 20 Mg/2 Ml Inj) 20 mg IV BID [facility] Last Admin: 06/14/21 02:17 Dose: 20 mg Documented by: Heparin Sodium (Porcine) (Heparin 5,000 Unit/1 Ml Vial) 5,000 unit SUB-Q Q12HR [facility] Hydromorphone HCl (Hydromorphone 1 Mg/1 Ml Inj) 0.5 mg IV Q3H PRN PRN Reason: Pain , Severe (7-10) Sodium Chloride (Nacl 0.9% 1000 Ml) 1,000 mls @ 75 mls/hr IV DIRECT [facility] Last Admin: 06/14/21 04:20 Dose: 75 mls/hr Documented by: Metoclopramide HCl (Metoclopramide 10 Mg/2 Ml Inj) 10 mg IV Q6H PRN PRN Reason: Nausea And Vomiting Ondansetron HCl (Ondansetron 4 Mg/2 Ml Inj) 4 mg IV Q8H PRN PRN Reason: Nausea And Vomiting Oxycodone/Acetaminophen (Oxycodone /Acetaminophen 5-325mg Tab) 1 tab PO Q6H PRN PRN Reason: Pain, Moderate (4-6) Sodium Chloride (Sodium Chloride 0.9% 10 Ml Flush Syringe) 10 ml IV BID [facility] Last Admin: 06/14/21 02:17 Dose: 10 ml Documented by: Sodium Chloride (Sodium Chloride 0.9% 10 Ml Flush Syringe) 10 ml IV PRN PRN PRN Reason: LINE FLUSH Physical Examination - Vital Signs Vital Signs: Vital Signs Temp Pulse Resp BP Pulse Ox 98 F 71 16 154/63 96 06/13/21 16:11 06/13/21 16:11 06/13/21 16:11 06/13/21 16:11 06/13/21 16:11 - Constitutional General appearance: comfortable - EENT EENT: Present: PERRL, mucous membranes moist - Respiratory Respiratory: Present: chest non-tender, lungs clear - Cardiovascular Cardiovascular: Present: regular rate, normal S1, normal S2 Extremities: Present: no peripheral edema bilatateraly, no clubbing, cyanosis - Gastrointestinal Gastrointestinal: Present: normoactive bowel sounds - Integumentary Integumentary: Present: normal - Neurologic Cranial nerve examination: intact Speech examination: intact Sensorimotor examination: intact Detailed motor examination: grossly full strength in - Level of Consciousness 1a. Level of Consciousness: alert/keenly responsive - LOC Questions 1b. LOC Questions: answers both correctly - LOC Command 1c. LOC Commands: performs tasks correctly - Best Gaze 2. Best Gaze: normal - Visual 3. Visual: no visual loss - Facial Palsy 4. Facial Palsy: normal symmetrical movement - Motor Arm 5a. Motor Arm Left: no drift 5b. Motor Arm Right: no drift - Motor Leg 6a. Motor Leg Left: no drift 6b. Motor Leg Right: no drift - Limb Ataxia 7. Limb Ataxia: absent - Sensory 8. Sensory: normal - Best Language 9. Best Language: no aphasia - Dysarthria 10. Dysarthria: normal - Extinction and Inattention 11. Extinction/Inattention: no abnormality - Scoring Total Score: 0 Stroke Severity: No Stroke Symptoms Results - Laboratory Findings CBC and BMP: 06/14/21 08:22 06/14/21 08:22 Abnormal Lab Findings: Abnormal Labs 06/13/21 06/13/21 06/13/21 17:30 17:30 17:30 WBC 11.2 H RDW 15.3 H APTT 22.7 L Glucose 109 H Total Creatine Kinase 384 H Assessment and Plan Assessment and Plan Advance Directives: Yes (Full code) VTE prophylaxis?: Chemical Plan of care discussed with patient/family: Yes - Patient Problems #Possibl Acute CVA (cerebrovascular accident) -Patient has severe ataxia -Possible posterior cerebral artery circulation stroke -CTAs are negative -We will get MRI for further delineation -pt. post TPA -NIH intial is #2 currently NIH#0 -Echo is pending -LDL,A!C -cardiac monitering -ST/PT evaluate # HTN (hypertension) -Allow 24 hours of permissive HTN -Continue antihypertensives and adjust medications there after # T2DM (type 2 diabetes mellitus) -Coverage for now -Check hemoglobin A1c (4) DVT prophylaxis -On heparin and GI prophylaxis
[2021-06-14 08:32] LABS: Hematocrit 31.6 % (30.3-42.9); Hemoglobin 10.5 gm/dl (10.1-14.3); Mean Corpuscular HGB Conc 33 % (30-34); Mean Corpuscular Volume 84 fl (79-97); Platelet Count 352 K/mm3 (140-440); Red Blood Count 3.76 M/mm3 (3.65-5.03); Red Cell Distribution Width 15.3 % (13.2-15.2)
[2021-06-14 09:22] LABS: Alanine Aminotransferase 13 units/L (7-56); Albumin 4.1 g/dL (3.9-5); BUN/Creatinine Ratio 23; Blood Urea Nitrogen 18 mg/dL (7-17); Calcium 8.8 mg/dL (8.4-10.2); Chol/HDL Ratio 3.67 %; HDL Cholesterol 37 mg/dL (40-59); Hemolysis Index 5; LDL Cholesterol,Direct 80 mg/dL (50-130)
[2021-06-14] MEDS: HEPARIN 5,000 UNIT/1 ML VIAL SUB-Q SCH ×2 (11:28→23:01)
--- NOTE | 2021-06-14 11:50 | Progress Note ---
Assessment and Plan - Patient Problems (1) Acute CVA (cerebrovascular accident) Current Visit: Yes Status: Acute Plan to address problem: CVA protocol: CT head, neuro check, telemetry neurology consulted, antiplatelet therapy, patient is status post TPA. The high probability of a clinically significant, sudden or life threatening deterioration of the [neuro] system(s) required my full and direct attention, intervention and personal management. The aggregate critical care time was [65] minutes. This time is in addition to time spent performing reported procedures but includes the following: [x] Data Review and interpretation [x] Patient assessment and monitoring of vital signs x [x] Documentation [x] Medication orders and management (2) Obesity hypoventilation syndrome Current Visit: Yes Status: Acute Plan to address problem: Balanced diet, increase physical activity discharge, outpatient pulmonary follow-up for sleep study (3) HTN (hypertension) Current Visit: Yes Status: Chronic Qualifiers: Hypertension type: primary hypertension Qualified Code(s): I10 - Essential (primary) hypertension Plan to address problem: Monitor blood pressure every shift, continue medical management, permissive hypertension overnight (4) T2DM (type 2 diabetes mellitus) Current Visit: Yes Status: Chronic Qualifiers: Diabetes mellitus intermediate insulin use: unspecified intermediate insulin use status Plan to address problem: Consistent carbohydrate diet, Accu-Chek, insulin protocol. (5) DVT prophylaxis Current Visit: Yes Status: Acute Plan to address problem: SCD to bilateral lower extremities while in bed History Interval history: 56 YO Female HD #2 with CVA S/P TPA administration. Hospitalist Physical - Constitutional Vitals: Temp Pulse Resp BP Pulse Ox 98 F 67 16 130/60 98 06/13/21 16:11 06/14/21 09:15 06/14/21 09:31 06/14/21 09:31 06/14/21 09:31 General appearance: Present: no acute distress, well-nourished, obese - EENT Eyes: Present: PERRL ENT: hearing intact - Neck Neck: Present: supple - Respiratory Respiratory effort: normal Respiratory: bilateral: CTA - Cardiovascular Rhythm: regular Heart Sounds: Present: S1 & S2 - Extremities Extremities: no ischemia Peripheral Pulses: within normal limits - Abdominal General gastrointestinal: soft, non-tender, non-distended - Integumentary Integumentary: Present: clear, dry - Psychiatric Psychiatric: cooperative - Neurologic Neurologic: CNII-XII intact, moves all extremities, no gait normal HEART Score - HEART Score Age: 45-65 Risk factors: 1-2 risk factors Troponin: Troponin T < 0.010 ng/mL (0.00-0.029) 06/13/21 17:30 Troponin: < normal limit - Critical Actions Critical Actions: 0-3 pts:0.9-1.7%risk of adverse cardiac event.Candidate for discharge Results - Labs CBC & Chem 7: 06/14/21 08:22 06/14/21 08:22 Labs: Laboratory Last Values WBC 9.9 K/mm3 (4.5-11.0) 06/14/21 08: RBC 3.76 M/mm3 (3.65-5.03) 06/14/21 08: Hgb 10.5 gm/dl (10.1-14.3) 06/14/21 08: Hct 31.6 % (30.3-42.9) 06/14/21 08: MCV 84 fl (79-97) 06/14/21 08:22 MCH 28 pg (28-32) 06/14/21 08:22 MCHC 33 % (30-34) 06/14/21 08: RDW 15.3 % (13.2-15.2) H 06/14/21 08:22 Plt Count 352 K/mm3 (140-440) 06/14/21 08:22 Lymph % (Auto) 31.3 % (13.4-35.0) 06/13/21 17:30 [place] % (Auto) 4.0 % (0.0-7.3) 06/13/21 17:30 Eos % (Auto) 0.5 % (0.0-4.3) 06/13/21 17:30 Baso % (Auto) 1.3 % (0.0-1.8) 06/13/21 17:30 Lymph # (Auto) Graphic Arts Technician 06/14/21 08:22 [place] # (Auto) 0.4 K/mm3 (0.0-0.8) 06/13/21 17:30 Eos # (Auto) 0.1 K/mm3 (0.0-0.4) 06/13/21 17:30 Baso # (Auto) 0.1 K/mm3 (0.0-0.1) 06/13/21 17:30 Seg Neutrophils % 62.9 % (40.0-70.0) 06/13/21 17:30 Seg Neutrophils # 7.0 K/mm3 (1.8-7.7) 06/13/21 17:30 PT 13.2 Sec. (12.2-14.9) 06/13/21 17:30 INR 0.95 (0.87-1.13) 06/13/21 17:30 APTT 22.7 Sec. (24.2-36.6) L 06/13/21 17:30 Thrombin Time 18.1 Sec. (15.1-19.6) 06/13/21 17:30 Sodium 138 mmol/L (137-145) 06/14/21 08:22 Potassium 3.8 mmol/L (3.6-5.0) 06/14/21 08:22 Chloride 102.1 mmol/L (98-107) 06/14/21 08:22 Carbon Dioxide 24 mmol/L (22-30) 06/14/21 08:22 Anion Gap 16 mmol/L 06/14/21 08:22 BUN 18 mg/dL (7-17) H 06/14/21 08:22 Creatinine 0.8 mg/dL (0.6-1.2) 06/14/21 08:22 Estimated GFR > 60 ml/min 06/14/21 08:22 BUN/Creatinine Ratio 23 % 06/14/21 08:22 Glucose 86 mg/dL (65-100) 06/14/21 08:22 Calcium 8.8 mg/dL (8.4-10.2) 06/14/21 08:22 Magnesium 1.90 mg/dL (1.7-2.3) 06/13/21 17:30 Total Bilirubin 0.40 mg/dL (0.1-1.2) 06/14/21 08:22 AST 16 units/L (5-40) 06/14/21 08:22 ALT 13 units/L (7-56) 06/14/21 08:22 Alkaline Phosphatase 89 units/L (35-129) 06/14/21 08:22 Total Creatine Kinase 384 units/L (30-135) H 06/13/21 17:30 CK-MB (CK-2) 1.4 ng/mL (0.0-4.0) 06/13/21 17:30 CK-MB (CK-2) Rel Index 0.3 (0-4) 06/13/21 17:30 Troponin T < 0.010 ng/mL (0.00-0.029) 06/13/21 17:30 Total Protein 7.4 g/dL (6.3-8.2) 06/14/21 08:22 Albumin 4.1 g/dL (3.9-5) 06/14/21 08:22 Albumin/Globulin Ratio 1.2 % 06/14/21 08:22 Triglycerides 103 mg/dL (2-149) 06/14/21 08:22 Cholesterol 136 mg/dL (50-199) 06/14/21 08:22 LDL Cholesterol Direct 80 mg/dL (50-130) 06/14/21 08:22 HDL Cholesterol 37 mg/dL (40-59) L 06/14/21 08:22 Cholesterol/HDL Ratio 3.67 % 06/14/21 08:22 TSH 1.430 mlU/mL (0.270-4.200) 06/13/21 17:30 Plasma/Serum Alcohol < 0.01 % (0-0.07) 06/13/21 17:30 Active Medications - Current Medications Current Medications: Generic Name Dose Route Start Last Admin Trade Name Freq PRN Reason Stop Dose Admin Acetaminophen 650 mg 06/13/21 21:48 Acetaminophen 325 Mg Tab PO Q4H PRN Pain MILD(1-3)/Fever >100.5/[place] Aspirin 325 mg 06/14/21 18:00 Aspirin 325 Mg Tab PO QDAY [facility] Atorvastatin Calcium 40 mg 06/13/21 22:00 06/14/21 02:16 Atorvastatin 40 Mg Tab PO 40 mg QHS [facility] Administration Famotidine 20 mg 06/13/21 22:00 06/14/21 11:28 Famotidine 20 Mg/2 Ml Inj IV 20 mg BID [facility] Administration Heparin Sodium (Porcine) 5,000 unit 06/14/21 10:00 06/14/21 11:28 Heparin 5,000 Unit/1 Ml Vial SUB-Q 5,000 unit Q12HR [facility] Administration Hydromorphone HCl 0.5 mg 06/13/21 21:48 Hydromorphone 1 Mg/1 Ml Inj IV Q3H PRN Pain , Severe (7-10) Sodium Chloride 1,000 mls @ 75 mls/hr 06/13/21 22:00 06/14/21 04:20 Nacl 0.9% 1000 Ml IV 75 mls/hr DIRECT [facility] Administration Metoclopramide HCl 10 mg 06/13/21 21:48 Metoclopramide 10 Mg/2 Ml Inj IV Q6H PRN Nausea And Vomiting Ondansetron HCl 4 mg 06/13/21 21:48 Ondansetron 4 Mg/2 Ml Inj IV Q8H PRN Nausea And Vomiting Oxycodone/Acetaminophen 1 tab 06/13/21 21:48 Oxycodone /Acetaminophen 5-325mg Tab PO Q6H PRN Pain, Moderate (4-6) Sodium Chloride 10 ml 06/13/21 22:00 06/14/21 02:17 Sodium Chloride 0.9% 10 Ml Flush Syringe IV 10 ml BID [facility] Administration Sodium Chloride 10 ml 06/13/21 21:48 Sodium Chloride 0.9% 10 Ml Flush Syringe IV PRN PRN LINE FLUSH
--- NOTE | 2021-06-14 12:38 | Consultation ---
History of Present Illness - Reason for Consult Consult date: 06/14/21 CVA Requesting physician: SALINAS ASH - History of Present Illness 56 y/o female with admitted with acute CVA found to be a candidate for TPA. Administered at 17:30 yesterday. Admitted to ICU for q1 hour Neurochecks and follow up. Past History Past Medical History: hypertension, hyperlipidemia Past Surgical History: No surgical history Social history: lives with family, full code Family history: hypertension Medications and Allergies Allergies Allergy/AdvReac Type Severity Reaction Status Date / Time No Known Allergies Allergy Verified 06/13/21 16:11 Active Meds: Active Medications Acetaminophen (Acetaminophen 325 Mg Tab) 650 mg PO Q4H PRN PRN Reason: Pain MILD(1-3)/Fever >100.5/[place] Aspirin (Aspirin 325 Mg Tab) 325 mg PO QDAY [facility] Atorvastatin Calcium (Atorvastatin 40 Mg Tab) 40 mg PO QHS [facility] Last Admin: 06/14/21 02:16 Dose: 40 mg Documented by: Famotidine (Famotidine 20 Mg/2 Ml Inj) 20 mg IV BID [facility] Last Admin: 06/14/21 11:28 Dose: 20 mg Documented by: Heparin Sodium (Porcine) (Heparin 5,000 Unit/1 Ml Vial) 5,000 unit SUB-Q Q12HR [facility] Last Admin: 06/14/21 11:28 Dose: 5,000 unit Documented by: Hydromorphone HCl (Hydromorphone 1 Mg/1 Ml Inj) 0.5 mg IV Q3H PRN PRN Reason: Pain , Severe (7-10) Sodium Chloride (Nacl 0.9% 1000 Ml) 1,000 mls @ 75 mls/hr IV DIRECT [facility] Last Admin: 06/14/21 04:20 Dose: 75 mls/hr Documented by: Metoclopramide HCl (Metoclopramide 10 Mg/2 Ml Inj) 10 mg IV Q6H PRN PRN Reason: Nausea And Vomiting Ondansetron HCl (Ondansetron 4 Mg/2 Ml Inj) 4 mg IV Q8H PRN PRN Reason: Nausea And Vomiting Oxycodone/Acetaminophen (Oxycodone /Acetaminophen 5-325mg Tab) 1 tab PO Q6H PRN PRN Reason: Pain, Moderate (4-6) Sodium Chloride (Sodium Chloride 0.9% 10 Ml Flush Syringe) 10 ml IV BID [facility] Last Admin: 06/14/21 02:17 Dose: 10 ml Documented by: Sodium Chloride (Sodium Chloride 0.9% 10 Ml Flush Syringe) 10 ml IV PRN PRN PRN Reason: LINE FLUSH Review of Systems All systems: negative Exam - Constitutional Vitals: Temp Pulse Resp BP Pulse Ox 98 F 67 16 130/60 98 06/13/21 16:11 06/14/21 09:15 06/14/21 09:31 06/14/21 09:31 06/14/21 09:31 Results - Labs CBC & Chem 7: 06/14/21 08:22 06/14/21 08:22 Labs: Abnormal lab results 06/13/21 06/13/21 06/13/21 Range/Units 17:30 17:30 17:30 WBC 11.2 H (4.5-11.0) K/mm3 RDW 15.3 H (13.2-15.2) % APTT 22.7 L (24.2-36.6) Sec. BUN (7-17) mg/dL Glucose 109 H (65-100) mg/dL Total Creatine Kinase 384 H (30-135) units/L HDL Cholesterol (40-59) mg/dL 06/14/21 06/14/21 Range/Units 08:22 08:22 WBC (4.5-11.0) K/mm3 RDW 15.3 H (13.2-15.2) % APTT (24.2-36.6) Sec. BUN 18 H (7-17) mg/dL Glucose (65-100) mg/dL Total Creatine Kinase (30-135) units/L HDL Cholesterol 37 L (40-59) mg/dL Assessment and Plan 56 y/o female with acute CVA 1. Q 1 hour neuro checks 2. BP control 3. Hold on ASA therapy until 24 hours post TPA 4. Avoid NSAID therapy 5. Statins CCt 31 minutes.
[2021-06-14 13:05] LABS: Band Neutrophils # (Manual) 0.1 K/mm3; Platelet Estimate Consistent w Auto; RBC Morphology Normal; Total Cells Counted 100
[2021-06-14] MEDS: ASPIRIN 325 MG TAB PO SCH (18:40)
[2021-06-14] MEDS: INSULIN LISPRO 100 UNIT/ML SUB-Q SCH (23:46)
[2021-06-15] MEDS: SODIUM CHLORIDE 0.9% 1000 ML 1,000 ML IV SCH ×2 (00:19→18:02)
[2021-06-15] MEDS: ASPIRIN 325 MG TAB PO SCH (09:51)
[2021-06-15] MEDS: FAMOTIDINE 20 MG/2 ML INJ IV SCH (09:52)
[2021-06-15] MEDS: HEPARIN 5,000 UNIT/1 ML VIAL SUB-Q SCH (09:52)
[2021-06-15] MEDS: INSULIN LISPRO 100 UNIT/ML SUB-Q SCH ×3 (09:56→18:01)
[2021-06-15] MEDS ORDERED: LISINOPRIL 10 MG TAB PO SCH (10:00)
[2021-06-15] MEDS ORDERED: hydroCHLOROthiazide 12.5 MG CAP PO SCH (10:00)
--- NOTE | 2021-06-15 10:49 | Magnetic Resonance Report ---
MRI BRAIN WITHOUT CONTRAST INDICATION / CLINICAL INFORMATION: stroke, dizziness, difficulty walking. TECHNIQUE: Multisequence, multiplanar images were obtained. COMPARISON: CT head dated 06/23/2021 FINDINGS: CEREBRAL and CEREBELLAR HEMISPHERES: No evidence of mass or mass effect. No midline shift. No acute hemorrhage. No diffusion restriction to suggest acute infarct. No extra-axial fluid collection. VENTRICLES: Normal in size and configuration for age. VISUALIZED ORBITS: No significant abnormality. VISUALIZED PARANASAL SINUSES: There is partial opacification of the left ethmoid air cells. The remai linda visualized sinuses are clear. ADDITIONAL FINDINGS: None. IMPRESSION: Unremarkable MR brain without contrast. No acute intracranial abnormality. Mild ethmoid sinus disease as described. Signer Name: Huang Cosby Jr, MD Signed: 06/15/2021 10:45 AM Workstation Name: [id number]
--- NOTE | 2021-06-15 11:00 | Electrocardiograph Report ---
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
--- NOTE | 2021-06-15 11:34 | Progress Note ---
Assessment and Plan 56 y/o female with acute CVA BP control per primary, otherwise, will sign off from a critical care standpoint. 1. Q 1 hour neuro checks 2. BP control 3. Hold on ASA therapy until 24 hours post TPA 4. Avoid NSAID therapy 5. Statins CCt 31 minutes. Subjective Date of service: 06/15/21 Interval history: Successful transfer to floor. No pulm issues. BP is elevated. Objective - Constitutional Vitals: Vital Signs - 12hr 06/15/21 06/15/21 06/15/21 01:08 01:13 03:00 Temperature Pulse Rate 60 Respiratory 20 Rate Blood Pressure O2 Sat by Pulse 99 99 Oximetry 06/15/21 06/15/21 06/15/21 05:00 05:25 08:11 Temperature 98.6 F 97.9 F Pulse Rate 59 L 62 Respiratory 17 18 Rate Blood Pressure 170/84 175/74 O2 Sat by Pulse 99 97 97 Oximetry 06/15/21 06/15/21 06/15/21 08:29 08:31 08:41 Temperature Pulse Rate Respiratory Rate Blood Pressure O2 Sat by Pulse 96 95 96 Oximetry 06/15/21 06/15/21 08:51 09:01 Temperature Pulse Rate Respiratory Rate Blood Pressure O2 Sat by Pulse 97 97 Oximetry - Labs CBC & Chem 7: 06/14/21 08:22 06/14/21 08:22 Labs: Abnormal lab results 06/14/21 06/14/21 06/14/21 Range/Units 08:22 08:22 22:58 Lymphocytes % (Manual) 49.0 H (13.4-35.0) % POC Glucose 177 H (70-105) mg/dL Hemoglobin A1c 7.2 H (4-6) % 06/15/21 Range/Units 08:09 Lymphocytes % (Manual) (13.4-35.0) % POC Glucose 107 H (70-105) mg/dL Hemoglobin A1c (4-6) % Medications & Allergies - Medications Allergies/Adverse Reactions: Allergies lisinopril Adverse Reaction (Verified 06/15/21 08:54) dry cough Home Medications: Home Medications Medication Instructions Recorded Confirmed Last Taken Type Aspirin [Adult Aspirin] 162 mg PO QDAY 06/15/21 06/15/21 06/12/21 History Atenolol [Tenormin] 100 mg PO DAILY 10/07/2606/15/21 06/12/21 History AtorvaSTATin [Lipitor] 40 mg PO QHS 06/15/21 06/15/21 06/12/21 History Cholecalciferol (Vitamin D3) 50,000 unit PO QWEEK 06/15/21 06/15/21 Unknown History [Vitamin D3 50,000UNIT CAP] Folic Acid 1 mg PO QDAY 06/15/21 06/15/21 06/12/21 History Insulin NPH Human Isophane 25 units SQ QAM 06/15/21 06/15/21 06/12/21 History [HumuLIN N] Insulin NPH Human Isophane 30 units SQ QHS 06/15/21 06/15/21 06/12/21 History [HumuLIN N] Losartan/Hydrochlorothiazide 1 tab PO QDAY 06/15/21 06/15/21 06/12/21 History [Losartan-Hctz 100-25 mg Tab] Metformin HCl [metFORMIN] 1,000 mg PO BID 06/15/21 06/15/21 06/12/21 History amLODIPine [Norvasc] 5 mg PO DAILY 06/15/21 06/15/21 06/12/21 History Active Medications: Generic Name Dose Route Start Last Admin Trade Name Freq PRN Reason Stop Dose Admin Acetaminophen 650 mg 06/13/21 21:48 06/14/21 18:40 Acetaminophen 325 Mg Tab PO 650 mg Q4H PRN Administration Pain MILD(1-3)/Fever >100.5/[place] Aspirin 325 mg 06/14/21 18:00 06/15/21 09:51 Aspirin 325 Mg Tab PO 325 mg QDAY [facility] Administration Atorvastatin Calcium 40 mg 06/13/21 22:00 06/14/21 23:02 Atorvastatin 40 Mg Tab PO 40 mg QHS [facility] Administration Famotidine 20 mg 06/13/21 22:00 06/15/21 09:52 Famotidine 20 Mg/2 Ml Inj IV 20 mg BID [facility] Administration Heparin Sodium (Porcine) 5,000 unit 06/14/21 10:00 06/15/21 09:52 Heparin 5,000 Unit/1 Ml Vial SUB-Q 5,000 unit Q12HR [facility] Administration Hydrochlorothiazide 12.5 mg 06/15/21 10:00 06/15/21 09:51 Hydrochlorothiazide 12.5 Mg Cap PO 12.5 mg QDAY [facility] Administration Sodium Chloride 1,000 mls @ 75 mls/hr 06/13/21 22:00 06/15/21 00:19 Nacl 0.9% 1000 Ml IV 75 mls/hr DIRECT [facility] Administration Insulin Human Lispro 0 unit 06/14/21 23:37 06/15/21 09:56 Insulin Lispro 100 Unit/Ml SUB-Q Not Given [facility]S [facility] Protocol Lisinopril 10 mg 06/15/21 10:00 06/15/21 09:53 Lisinopril 10 Mg Tab PO 10 mg QDAY [facility] Administration Metoclopramide HCl 10 mg 06/13/21 21:48 Metoclopramide 10 Mg/2 Ml Inj IV Q6H PRN Nausea And Vomiting Ondansetron HCl 4 mg 06/13/21 21:48 Ondansetron 4 Mg/2 Ml Inj IV Q8H PRN Nausea And Vomiting Oxycodone/Acetaminophen 1 tab 06/13/21 21:48 Oxycodone /Acetaminophen 5-325mg Tab PO Q6H PRN Pain, Moderate (4-6) Sodium Chloride 10 ml 06/13/21 22:00 06/15/21 09:55 Sodium Chloride 0.9% 10 Ml Flush Syringe IV 10 ml BID [facility] Administration Sodium Chloride 10 ml 06/13/21 21:48 Sodium Chloride 0.9% 10 Ml Flush Syringe IV PRN PRN LINE FLUSH HEART Score - HEART Score Age: 45-65 Risk factors: 1-2 risk factors Troponin: Troponin T < 0.010 ng/mL (0.00-0.029) 06/13/21 17:30 Troponin: < normal limit - Critical Actions Critical Actions: 0-3 pts:0.9-1.7%risk of adverse cardiac event.Candidate for discharge
--- NOTE | 2021-06-15 18:38 | Discharge Summary ---
Providers - Providers Date of Admission: 06/13/21 18:17 Attending physician: KYREE BRENNER MD 06/13/21 Consult to Physician [CONS] Routine Comment: Consulting Provider: JONELLE GRANT Physician Instructions: Reason For Exam: Acute CVA 06/13/21 17:27 Consult to Physician [CONS] Urgent Comment: Consulting Provider: DANTE KOHLI Physician Instructions: Reason For Exam: cva w tpa 06/13/21 21:55 Occupational Therapy Evaluate and Treat [CONS] Routine Comment: Reason For Exam: Neuro deficits Physical Therapy Evaluation and Treat [CONS] Routine Comment: Reason For Exam: Neuro deficits Hospitalization Condition: Critical Disposition: 01 HOME / SELF CARE / HOMELESS Exam - Constitutional Vitals: Temp Pulse Resp BP Pulse Ox 98.2 F 63 18 144/66 94 06/15/21 16:48 06/15/21 16:48 06/15/21 16:48 06/15/21 16:48 06/15/21 16:48 Plan Activity: advance as tolerated Weight Bearing Status: Full Weight Bearing Diet: low fat, low salt, diabetic Follow up with: SEA MARTINEZ [Other] - 7 Days DENISSE WILLIAM MD [Staff Physician] - 14 Days
[2021-06-15 20:12] VITALS: BP 150/70
== END 2021-06-15 20:56 | disposition home or self-care (01) | DRG 62 ==
LOC: ED 15:54 → CC1 18:17 → 4A 06-14 17:38
PROVIDERS: ADMIT Internal Medicine; ATTEND Internal Medicine
DX: I63.9 Cerebral infarction, unspecified (principal); E66.2 Morbid (severe) obesity with alveolar hypoventilation; Z68.35 Body mass index [BMI] 35.0-35.9, adult; I10 Essential (primary) hypertension; Z82.49 Family history of ischemic heart disease and other diseases of the circulatory system; M06.9 Rheumatoid arthritis, unspecified; E78.5 Hyperlipidemia, unspecified; E11.9 Type 2 diabetes mellitus without complications
CPT/HCPCS: 36415; 70450; 70496; 70498; 70551; 80053; 80061; 80320; 82550; 82553; 82962; 83036; 83735; 84443; 84484; 85007; 85025; 85610; 85670; 85730; 93005; 93306; G0378; G0480; J1644; J1815; J2997; J7030; Q9967